=== PATIENT | male | born 1970 | race Two or more races ===

== ENCOUNTER 2019-01-18 14:41 | Inpatient (IN) | payer OTHER ==
[~2019-01-18] VITALS: Ht 172.7 cm; Wt 75.0 kg
[2019-01-18] MEDS ORDERED: SODIUM CHLORIDE 0.9% 1,000 ML IV ONE ×2 (15:11)
[2019-01-18 15:22] LABS: Basophils # (auto) 0 uL; Basophils % (auto) 0.5 % (0.0-2.0); Eosinophils # (auto) 0.1 uL; Hematocrit 36.9 % (41.0-53.0); Hemoglobin 12.2 g/dL (13.5-17.5); Lymphocytes # (auto) 1.6 uL; Lymphocytes % (auto) 17.9 % (10.0-50.0); Mean Corpuscular Hemoglobin 28.7 pg (28.0-32.0); Monocytes # (auto) 0.7 uL; Monocytes % (auto) 8.2 % (0.0-12.0); Neutrophils # (auto) 6.5 uL; Neutrophils % (auto) 72.4 % (37.0-80.0); Platelet Count (auto) 269 10^3/uL (140-450); Red Blood Cells 4.24 10^6/uL (4.5-5.90); Red Cell Distribution Width 13.5 % (11.8-14.3)
[2019-01-18 15:28] LABS: Albumin 3.1 g/dL (3.4-5.0); Calcium 9.3 mg/dL (8.5-10.1)
[2019-01-18 15:34] LABS: BUN/Creatinine Ratio 18.6; Bilirubin, Total 0.2 mg/dL (0.2-1.0); Total Protein 8.5 g/dL (6.4-8.2)
[2019-01-18 15:36] LABS: INR 0.9 (0.9-1.15); Partial Thromboplastin Time 26.6 sec (23.78-33.04); Prothrombin Time 9.7 sec (9.27-12.13)
[2019-01-18] MEDS ORDERED: VANCOMYCIN 1GM/250ML 250 ML IV ONE (22:00)
[2019-01-18] MEDS ORDERED: ONDANSETRON HCL 4 MG/2 ML VIAL IV PRN (22:00)
--- NOTE | 2019-01-18 23:35 | NUR ---
MS admit from ER MONY HIGUERA admitted to tele/MS after SBAR received. Patient oriented to Sherley jerez RN, unit, room, bed, and unit policies regarding patient care and visiting hours. Patient weighed by bedscale and encouraged to call if they need something. All questions and concerns addressed, patient verbalized understanding. Note: 2 PERCUTANEOUS DRAINAGE TO RIGHT UPPER BACK DRAINING BLOODY DRAIN.
[2019-01-19] VITALS: BP 119/65
--- NOTE | 2019-01-19 00:25 | NUR ---
PAGED DR. ESQUEDA, PATIENT REPORTED TO BE DIABETIC WITH NO SLIDING SCALE ORDERS AND IS REQUESTING FOR SLEEPING PILL.
--- NOTE | 2019-01-19 00:38 | NUR ---
DR. ESQUEDA CALLED BACK NEW ORDERS MADE. CONTINUE PATIENT CARE.
[2019-01-19] MEDS: ZOLPIDEM TARTRATE 5 MG TAB PO PRN (01:48)
[2019-01-19 03:33] LABS: Urine Bacteria NONE SEEN /hpf (None Seen); Urine Blood Negative /uL (Negative); Urine Specific Gravity 1.024 (1.001-1.035); Urine WBC <1 /hpf (0 - 3)
[2019-01-19 05:22] VITALS: BP 117/67
--- NOTE | 2019-01-19 08:00 | NUR ---
ASSESSMENT NOTE PT IS LAERT ORIENTED X4, RESTING IN BED COMFORTABLY, NO DISTRESS NOTED, PAIN 0/10, SELF REPOSITION, ABLE TO IDENTIFY HIS DEMANDS, PT HAS A METAL CUFF AT LEFT WRIEST, CHECKED FOR CIRCULATION AT ALL TIMES, CALL LIGHT WITH REACH, PT'S GUARDS AT BED SIDE
[2019-01-19 09:00] VITALS: BP 134/75
[2019-01-19] MEDS ORDERED: InsuLIN REG 1unit/0.01ml Soln (100units/ml) SC SCH ×2 (10:00→22:00)
[2019-01-19] MEDS ORDERED: ACCU-CHEK COMFORT CURVE STRIP VI SCH (10:00)
--- NOTE | 2019-01-19 11:30 | NUR ---
WOUND NURSE BILLY AT BED SIDE ASSESSING PT'S SKIN
--- NOTE | 2019-01-19 11:32 | NUR ---
WOUND CARE NOTE: Wound care in to see patient per wound care request regarding " wound to upper back" that are noted present on admission. Bedside nurse took photograph of patient's skin issue upon admission for reference. Patient is 48 years old male with admitting diagnosis of Abscess. Patient has history of DM. Patient is resting in bed in Rm. 244-6. Patient is awake, Luxembourgish speaking, alert and oriented. Patient is in no stated pain at this time. He reported that he's ambulatory and he's self turn and reposition. His Alexei score is 20. Patient's Rt upper chest/shoulder has intact 5x5cm red lump and to his medial upper back is 2x 0.7x0.7cm intact dry scabbed wounds with dark red luz wound. Rt upper back has 2x intact pig tail drain. No open draining wound noted. RN Lorrie reported that patient had aspiration of fluid/abscess to Rt upper back in ED and pig tail drain was placed. She also reported that during aspiration of fluid/abscess, wound culture specimen already sent to lab. No other wound noted, no pressure injury related issue noted. Patient tolerated well. Bed in low position, call head within reach with all safety precautions in placed. No further wound care monitoring needed at this time. Addendum: 01/19/19 at 1540 by Chante Mc RN Amended: Links added.
--- NOTE | 2019-01-19 12:40 | NUR ---
DR ESQUEDA IS HERE MADE AWARE OF PT'S BLOOD SUGAR
[2019-01-19 12:51] VITALS: BP 124/73
[2019-01-19] MEDS ORDERED: DEXTROSE (50%) 50ML SYRG IV PRN (13:00)
[2019-01-19] MEDS: InsuLIN REG 1unit/0.01ml Soln (100units/ml) SC SCH ×2 (13:16→22:25)
[2019-01-19] MEDS: ACCU-CHEK COMFORT CURVE STRIP VI SCH ×2 (13:16→22:13)
[2019-01-19] MEDS: VANCOMYCIN 1GM/250ML 250 ML IV SCH (14:15)
--- NOTE | 2019-01-19 15:26 | NUR ---
Nutrition Consult/assessment Notes Please see attached link for complete assessment Est. Needs BW [id number] kcal (23-25 kcal/kgBW), 79-95 gms pro (1.0-1.2gms/kgBW r/t wounds). Will continue to monitor pertinent labs and reassess nutrient need prn Addendum: 01/19/19 at [address] Amended: Links added.
[2019-01-19 16:42] VITALS: BP 104/67
--- NOTE | 2019-01-19 17:56 | NUR ---
PT CONTINUE STABLE, NO DISTRESS NOTED, CONTINUE MONITORING.
--- NOTE | 2019-01-19 19:25 | NUR ---
Opening Shift Note Assumed care of patient, awake and alert with guard at bedside. No S/S of distress/SOB or pain. Instructed on POC and to call for assistance PRN, will continue to monitor for changes Q1hr and PRN.
[2019-01-19 21:30] VITALS: BP 104/58
[2019-01-19] MEDS: MORPHINE SULFATE 4 MG/ML SYR/VIAL IV PRN (22:14)
[2019-01-20] MEDS: VANCOMYCIN 1GM/250ML 250 ML IV SCH ×2 (02:10→13:46)
[2019-01-20 05:00] VITALS: BP 98/55
--- NOTE | 2019-01-20 07:09 | NUR ---
MADI drain emptied 25 cc emptied from MADI drains.
--- NOTE | 2019-01-20 08:00 | NUR ---
ASSESSMENT NOTE PT IS ALERT ORIENTED X4, RESTING IN BED COMFORTABLY, NO DISTRESS NOTED, PAIN 0/10, SELF REPOSITION, ABLE TO IDENTIFY HIS DEMANDS, PT HAS A METAL CUFF AT WRIEST WRIEST, CHECKED FOR CIRCULATION AT ALL TIMES, CALL LIGHT WITH REACH, PT'S GUARDS AT BED SIDE. PT CONTINUE TO HAVE 2 MADI DRAINAGE ON RT UPPER POSTERIOR NECK AREA, ON A NEGATIVE PRESSURE.
--- NOTE | 2019-01-20 08:09 | NUR ---
DR HUGHES AT BED SIDE A SURGICAL CONSULT, ASSESSING PT.
--- NOTE | 2019-01-20 08:23 | NUR ---
DR GUZMAN INFORM ME THAT PT IS A LOT BETTER NOW, AND HE NEED BNP BECAUSE HE IS ON VANCOMYCIN AND THIS MAY EFFECT HIS KIDNEY.
[2019-01-20] MEDS: metFORMIN HYDROCHLORIDE 850 MG TAB PO SCH (09:22)
[2019-01-20 09:31] LABS: Basophils # (auto) 0 uL; Basophils % (auto) 0.5 % (0.0-2.0); Eosinophils # (auto) 0.2 uL; Eosinophils % (auto) 2.3 % (0.0-7.0); Hematocrit 36.2 % (41.0-53.0); Hemoglobin 11.8 g/dL (13.5-17.5); Lymphocytes # (auto) 1.9 uL; Lymphocytes % (auto) 22.6 % (10.0-50.0); Mean Corpuscular Hemoglobin 28.6 pg (28.0-32.0); Mean Corpuscular Hgb Conc. 32.6 g/dL (32.0-36.0); Mean Corpuscular Volume 87.6 fL (80.0-100.0); Monocytes # (auto) 0.6 uL; Monocytes % (auto) 7.1 % (0.0-12.0); Neutrophils # (auto) 5.7 uL; Neutrophils % (auto) 67.5 % (37.0-80.0); Platelet Count (auto) 253 10^3/uL (140-450); Red Blood Cells 4.13 10^6/uL (4.5-5.90); Red Cell Distribution Width 13.8 % (11.8-14.3); White Blood Cell 8.4 10^3/uL (4.4-10.8)
[2019-01-20 09:35] VITALS: BP 124/68
[2019-01-20 09:44] LABS: BUN/Creatinine Ratio 22.1; Calcium 8.9 mg/dL (8.5-10.1); Potassium 4.4 mmol/L (3.5-5.1)
[2019-01-20] MEDS: InsuLIN REG 1unit/0.01ml Soln (100units/ml) SC SCH ×2 (11:44→22:15)
[2019-01-20] MEDS: ENOXAPARIN SOD 40 MG/0.4 ML SYRINGE SC SCH (11:44)
[2019-01-20] MEDS: ACCU-CHEK COMFORT CURVE STRIP VI SCH ×2 (11:44→22:09)
[2019-01-20 12:32] VITALS: BP 114/58
--- NOTE | 2019-01-20 14:00 | NUR ---
PT CONTINUE STABLE, CONTINUE MONITORING
[2019-01-20 16:58] VITALS: BP 105/63
--- NOTE | 2019-01-20 17:50 | NUR ---
PT CONTINUE STABLE DRAIN BOTH MADI DRAINAGE WAS 50 ML EACH.
--- NOTE | 2019-01-20 19:10 | NUR ---
Opening Shift Note Assumed care of patient, awake and alert. No S/S of distress/SOB or pain. Instructed on POC and to call for assistance PRN, will continue to monitor for changes Q1hr and PRN.
[2019-01-20 21:00] VITALS: BP 110/65
[2019-01-20] MEDS: MORPHINE SULFATE 4 MG/ML SYR/VIAL IV PRN (22:09)
[2019-01-21] MEDS: VANCOMYCIN 1GM/250ML 250 ML IV SCH ×2 (01:32→14:28)
[2019-01-21 05:00] VITALS: BP 96/44
--- NOTE | 2019-01-21 07:00 | NUR ---
Opening Shift Note Assumed care of patient, awake and alert. No S/S of distress/SOB or pain. Two drainage bags to suction draining dark brown fluid. Instructed on POC and to call for assist PRN, will continue to monitor. Bed locked in the lowest position. Bed rails up x2. Call light in reach. Guards at bedside.
[2019-01-21 09:00] VITALS: BP 120/68
[2019-01-21] MEDS: metFORMIN HYDROCHLORIDE 850 MG TAB PO SCH (09:44)
[2019-01-21] MEDS: ENOXAPARIN SOD 40 MG/0.4 ML SYRINGE SC SCH (09:45)
[2019-01-21] MEDS: MORPHINE SULFATE 4 MG/ML SYR/VIAL IV PRN (09:47)
[2019-01-21] MEDS: ACCU-CHEK COMFORT CURVE STRIP VI SCH ×2 (09:47→22:15)
[2019-01-21] MEDS: InsuLIN REG 1unit/0.01ml Soln (100units/ml) SC SCH ×2 (09:48→22:15)
[2019-01-21] MEDS ORDERED: HYDROcodone-ACET 10/325MG TAB PO PRN (11:00)
[2019-01-21 13:00] VITALS: BP 102/53
--- NOTE | 2019-01-21 15:00 | NUR ---
RECEIVED CALL FROM MICROBIOLOGY PATIENT IS POSITIVE FOR MRSA IN WOUND. PAGED MD. AWAITING CALL BACK
--- NOTE | 2019-01-21 15:24 | NUR ---
AWARE DR. ESQUEDA AWARE OF PATIENTS POSITIVE MRSA RESULT. NO NEW ORDERS RECEIVED.
--- NOTE | 2019-01-21 15:25 | NUR ---
PATIENT MOVED TO ROOM 240 BED B IN BED WITH ALL PERSONAL BELONGINGS. NO S/S OF DISTRESS NOTED AT THIS TIME. DRAINS TO SUCTION. PATIENT DENIES PAIN.
[2019-01-21 17:00] VITALS: BP 110/59
--- NOTE | 2019-01-21 18:58 | NUR ---
CLOSING NOTE Patient is awake and alert. No S/S of distress/SOB or pain. Two drainage bags to suction draining dark brown fluid. Bed locked in the lowest position. Bed rails up x2. Call light in reach. Guards at bedside. Addendum: 01/21/19 at 1859 by Dilma Borges RN Endorsed care to registered nurse midwife RN.
--- NOTE | 2019-01-21 19:00 | NUR ---
DRAINAGE OUTPUT DRAIN #1 25ML OF DARK BROWN DRAINAGE DRAIN #2 20ML OF DARK BROWN DRAINAGE DRAINS TO SUCTION.
--- NOTE | 2019-01-21 19:35 | NUR ---
Opening Shift Note Assumed care of patient, awake and alert. No S/S of distress/SOB or pain. Guards at bedside. Bed locked in lowest position, side rails upx2, call light within reach. Instructed on POC and to call for assist PRN, will continue to monitor for changes Q1hr and PRN.
--- NOTE | 2019-01-21 20:49 | NUR ---
IV insertion IV access obtained, via clean sterile technique by inserting 22 gauge catheter at RIGHT ANTECUBITAL after 1 attempt(s). IV secured properly. No trauma to site. Patient tolerated well.
[2019-01-21 22:00] VITALS: BP 123/67
[2019-01-22] MEDS: VANCOMYCIN 1GM/250ML 250 ML IV SCH ×2 (02:04→17:07)
[2019-01-22 05:00] VITALS: BP 120/60
--- NOTE | 2019-01-22 06:06 | NUR ---
DRAINS Removed total of 25cc of dark brown fluid from both pigtail drains.
--- NOTE | 2019-01-22 08:26 | NUR ---
OPEN PT RESTING IN BED AWAKE A&O WITH EQUAL AND UNLABORED PT IN CUSTODY AND CUFFED TO BED, GUARDS X2 AT BEDSIDE PT HAS DRAIN X2 TO RIGHT POSTERIOR SHOULDER AND UNOPENED, HYPER PIGMENTED, HEALING OLD ABSCESS AREA TO RIGHT UPPER CHEST/ANTERIOR SHOULDER NO CURRENT C/O PAIN, NO S/S OF DISTRESS WILL CONTINUE TO MONITOR
[2019-01-22 09:00] VITALS: BP 130/70
[2019-01-22] MEDS: ACCU-CHEK COMFORT CURVE STRIP VI SCH ×2 (10:00→21:43)
[2019-01-22] MEDS: InsuLIN REG 1unit/0.01ml Soln (100units/ml) SC SCH ×2 (10:00→21:43)
[2019-01-22] MEDS: ENOXAPARIN SOD 40 MG/0.4 ML SYRINGE SC SCH (11:06)
[2019-01-22] MEDS: metFORMIN HYDROCHLORIDE 850 MG TAB PO SCH (11:08)
[2019-01-22 13:00] VITALS: BP 120/68
[2019-01-22 17:00] VITALS: BP 120/70
[2019-01-22 21:30] VITALS: BP 118/66
[2019-01-22] MEDS: ZOLPIDEM TARTRATE 5 MG TAB PO PRN (21:42)
[2019-01-23] MEDS: VANCOMYCIN 1GM/250ML 250 ML IV SCH ×2 (02:02→14:14)
[2019-01-23 04:30] VITALS: BP 105/58
--- NOTE | 2019-01-23 08:30 | NUR ---
OPEN PT RESTING IN BED AWAKE A&O GREENLAND[place] SPEAKING GUARDS AT BEDSIDE X2 NO C/O PAIN OR S/S OF DISTRESS WILL CONTINUE TO MONITOR
[2019-01-23 09:00] VITALS: BP 110/69
[2019-01-23] MEDS ORDERED: VANCOMYCIN PER PHARMACY 1,000 MG IV SCH (09:30)
[2019-01-23] MEDS: InsuLIN REG 1unit/0.01ml Soln (100units/ml) SC SCH ×2 (10:00→22:41)
[2019-01-23] MEDS: ACCU-CHEK COMFORT CURVE STRIP VI SCH ×2 (10:00→22:41)
[2019-01-23] MEDS: metFORMIN HYDROCHLORIDE 850 MG TAB PO SCH (10:35)
[2019-01-23] MEDS: ENOXAPARIN SOD 40 MG/0.4 ML SYRINGE SC SCH (10:36)
[2019-01-23 13:00] VITALS: BP 110/68
[2019-01-23 17:31] VITALS: BP 115/69
--- NOTE | 2019-01-23 19:30 | NUR ---
Opening Shift Note Assumed care of patient, awake and alert. No S/S of distress/SOB or pain. Pt speaks Turkmen, but iron guardrail installer able to interpret. Insructed on POC and to call for assist PRN, will continue to monitor for changes PRN. Bed in low position and semi-Engle's. Call light in pt's bed across his lap.
--- NOTE | 2019-01-23 19:58 | NUR ---
provided report to shift leader nurse. patient is aox4, verbally denies any pain, distress or pain at this time.
[2019-01-23 21:57] VITALS: BP 120/70
[2019-01-23] MEDS: ZOLPIDEM TARTRATE 5 MG TAB PO PRN (22:45)
[2019-01-24] MEDS: VANCOMYCIN 1GM/250ML 250 ML IV SCH ×2 (02:00→14:22)
[2019-01-24 04:32] VITALS: BP 124/79
[2019-01-24 08:50] VITALS: BP 123/75
[2019-01-24] MEDS: metFORMIN HYDROCHLORIDE 850 MG TAB PO SCH (08:54)
[2019-01-24] MEDS: ENOXAPARIN SOD 40 MG/0.4 ML SYRINGE SC SCH (08:54)
--- NOTE | 2019-01-24 10:00 | NUR ---
DR ESQUEDA IS HERE FOLLOWING UP ON PT
[2019-01-24] MEDS: ACCU-CHEK COMFORT CURVE STRIP VI SCH ×2 (10:24→21:47)
[2019-01-24] MEDS: InsuLIN REG 1unit/0.01ml Soln (100units/ml) SC SCH ×2 (10:24→21:47)
--- NOTE | 2019-01-24 11:55 | NUR ---
PT CONTINUE STABLE, TOLERATING DIET WELL.
--- NOTE | 2019-01-24 12:07 | NUR ---
Nutrition Follow-up Notes Wt.: 78.3 kg as of yesterday. Pt's an inmate, deputies at bedside, denies any discomfort when rounded this morning. 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 Pt's diabetic, takes oral DM meds, with insulin shots 2x daily, usually has good appetite, eat meals regularly, NKFA and not into any special diets mine captain. Pt's currently on Consistent Std. Carb: 60 gms/meal diet with adequate PO intake aeb 95% ave. consumed meals (x7) in last 3 days. Provide nutrition educ. re: current prescribed therapeutic diet and he verbalized understanding. Noted pt's for active Wound consult. Est. Needs BW [id number] kcal (23-25 kcal/kgBW), 79-95 gms pro (1.0-1.2gms/kgBW r/t wounds). Will continue to monitor pertinent labs and reassess nutrient need prn Labs: No new labs since 01/20/19 except for today POC Gluc 247 H; Alb 3.1 L. Skin: Alexei scale 19, low risk, pt's right upper anterior chest/shoulder, right back incision s/p I & D with drains per business support coordinator. GI: Pt had 1 BM this morning per business support coordinator. PES: Altered nutrition related lab values r/t current/chronic medical condition aeb hyperglycemia, mild hypoalb Will continue to monitor PO intake, skin status, pertinent labs and weight trend. F/u in 3 to 5 days. Rec.: 1.) Continue close supervision during meals. 2.) Refer pt to CDE/RD for further nutrition education and weight monitoring upon discharge. 3.) Continue current plan of care.
--- NOTE | 2019-01-24 12:58 | NUR ---
Opening Shift Note Assumed care of patient, awake and alert. No S/S of distress/SOB or pain. Instructed on POC and to call for assist PRN, will continue to monitor for changes Q1hr and PRN. GUARD AT BEDSIDE
[2019-01-24 17:59] VITALS: BP 130/70
--- NOTE | 2019-01-24 19:00 | NUR ---
DRAINAGE FROM NECK DRAINS FIRST BAG HAD 5ML AND SECOND BAG HAD 12 ML
--- NOTE | 2019-01-24 19:45 | NUR ---
Opening Shift Note Assumed care of patient, awake and alert, Tajik speaking hospital administrative assistant at bedside, A/O X4. On room air with even and unlabored respirations. DrainsX2 to right upper posterior shoulder/back clean, dry, intact with minimum purulent drainage. Pt turns independently in bed. Guards at bedside. No S/S of distress/SOB or pain. Instructed on POC and to call for assist PRN, will continue to monitor for changes Q1hr and PRN.
[2019-01-24 20:00] VITALS: BP 118/76
[2019-01-24 22:00] VITALS: BP 118/76
[2019-01-25] MEDS: VANCOMYCIN 1GM/250ML 250 ML IV SCH ×2 (02:04→13:54)
[2019-01-25 05:05] VITALS: BP 121/66
--- NOTE | 2019-01-25 07:00 | NUR ---
Closing Note patient resting in bed with even and unlabored respirations. no s/s distress. Endorsed care at bedside.
--- NOTE | 2019-01-25 08:00 | NUR ---
IV removal IV to right antecubital DC'd with clean sterile technique, catheter fully intact. Pressure dressing applied to site. Patient tolerated well.
--- NOTE | 2019-01-25 08:00 | NUR ---
SPOKE WITH MD ESQUEDA- UPDATED ON MICROBIOLOGY RESULTS, ORDERS TO CONTINUE BACTROBAN IN NARES AT THIS TIME. WILL FOLLOW THROUGH WITH ORDERS.
[2019-01-25 09:13] VITALS: BP 113/67
[2019-01-25] MEDS: InsuLIN REG 1unit/0.01ml Soln (100units/ml) SC SCH ×2 (10:30→23:19)
[2019-01-25] MEDS: metFORMIN HYDROCHLORIDE 850 MG TAB PO SCH (10:30)
[2019-01-25] MEDS: ENOXAPARIN SOD 40 MG/0.4 ML SYRINGE SC SCH (10:30)
[2019-01-25] MEDS: ACCU-CHEK COMFORT CURVE STRIP VI SCH ×2 (10:31→23:20)
--- NOTE | 2019-01-25 10:45 | NUR ---
IV insertion IV access obtained, via clean sterile technique by inserting 22 gauge catheter at after 1 attempt. IV secured properly. No trauma to site. Patient tolerated well.
[2019-01-25 13:40] VITALS: BP 117/69
--- NOTE | 2019-01-25 13:50 | NUR ---
MD GUZMAN AT BEDSIDE. ONE DRAIN REMOVED FROM BACK. PATIENT TOLERATED WELL, NO S/S OF STRESS.
[2019-01-25 17:59] VITALS: BP 117/68
--- NOTE | 2019-01-25 19:43 | NUR ---
CLOSING NOTE SHIFT REPORT GIVEN TO BALANCE CLERK RN. PATIENT IN BED LOW LOCK POSITION. CALL LIGHT IN REACH. NO S/S OF DISTRESS.
[2019-01-25 20:00] VITALS: BP 118/76
[2019-01-25 21:59] VITALS: BP 119/69
[2019-01-26] MEDS: VANCOMYCIN 1GM/250ML 250 ML IV SCH ×2 (02:23→14:15)
[2019-01-26 04:52] VITALS: BP 109/57
--- NOTE | 2019-01-26 07:30 | NUR ---
OPENING NOTE The patient is received alert and oriented times four with no SOB or s/s of distress at this time. The patient is resting in bed in the lowest position with correctional officers bedside, will continue to monitor and POC.
[2019-01-26 08:42] VITALS: BP 122/72
[2019-01-26] MEDS: metFORMIN HYDROCHLORIDE 850 MG TAB PO SCH (09:38)
[2019-01-26] MEDS: InsuLIN REG 1unit/0.01ml Soln (100units/ml) SC SCH ×2 (09:39→22:25)
[2019-01-26] MEDS: ENOXAPARIN SOD 40 MG/0.4 ML SYRINGE SC SCH (09:39)
[2019-01-26] MEDS: ACCU-CHEK COMFORT CURVE STRIP VI SCH ×2 (09:40→22:25)
--- NOTE | 2019-01-26 12:30 | NUR ---
Rounds Patient awake and alert. No S/S of distress/SOB or pain. Will continue to monitor changes q1hr and PRN.
[2019-01-26 12:32] VITALS: BP 100/57
--- NOTE | 2019-01-26 16:30 | NUR ---
Rounds Patient awake and alert. No S/S of distress/SOB or pain. Will continue to monitor changes q1hr and PRN.
[2019-01-26 16:36] VITALS: BP 136/70
--- NOTE | 2019-01-26 19:30 | NUR ---
Patient in bed alert and oriented x 4, verbally coherent, able to make needs known. Patient's respiration even and unlabored, denies pain and discomfort at this time. Plan of care discussed, patient verbalized understanding. All needs attended, 2 guards at bedside, will continue to monitor.
[2019-01-26 20:00] VITALS: BP 118/76
--- NOTE | 2019-01-26 21:35 | NUR ---
Patient wanted to shower. Provided pt with toiletries and IV to RFA wrapped for safety. Guards assisted patient to bathroom.
[2019-01-26 22:00] VITALS: BP 111/65
[2019-01-27] MEDS: VANCOMYCIN 1GM/250ML 250 ML IV SCH ×3 (02:39→14:19)
[2019-01-27 05:00] VITALS: BP 107/64
[2019-01-27 06:31] LABS: Albumin 2.5 g/dL (3.4-5.0); BUN/Creatinine Ratio 23.1; Calcium 8.5 mg/dL (8.5-10.1); Potassium 4.2 mmol/L (3.5-5.1)
--- NOTE | 2019-01-27 06:31 | NUR ---
Drained 15 mls of purulent fluid. Dressing intact clean and dry. No tenderness or redness to surrounding skin. Will continue to monitor.
[2019-01-27 06:33] LABS: Bilirubin, Total 0.1 mg/dL (0.2-1.0); Total Protein 7.3 g/dL (6.4-8.2)
[2019-01-27 08:00] VITALS: BP 122/71
[2019-01-27 08:46] VITALS: BP 117/62
[2019-01-27] MEDS: ACCU-CHEK COMFORT CURVE STRIP VI SCH ×2 (10:00→21:45)
[2019-01-27] MEDS: InsuLIN REG 1unit/0.01ml Soln (100units/ml) SC SCH ×2 (10:00→21:44)
[2019-01-27] MEDS: ENOXAPARIN SOD 40 MG/0.4 ML SYRINGE SC SCH (11:04)
[2019-01-27] MEDS: metFORMIN HYDROCHLORIDE 850 MG TAB PO SCH (11:04)
[2019-01-27 13:00] VITALS: BP 122/71
[2019-01-27 16:29] VITALS: BP 131/72
--- NOTE | 2019-01-27 19:30 | NUR ---
Opening Shift Note Assumed care of patient, awake and alert. No S/S of distress/SOB or pain. Instructed on POC and to call for assist PRN, will continue to monitor for changes Q1hr and PRN. Guards at bedside.
[2019-01-27] MEDS: ZOLPIDEM TARTRATE 5 MG TAB PO PRN (21:42)
[2019-01-27 22:00] VITALS: BP 131/79
[2019-01-28] MEDS: VANCOMYCIN 1GM/250ML 250 ML IV SCH ×2 (02:40→14:00)
[2019-01-28 05:00] VITALS: BP 102/57
[2019-01-28 08:44] VITALS: BP 109/67
[2019-01-28] MEDS: metFORMIN HYDROCHLORIDE 850 MG TAB PO SCH (10:25)
[2019-01-28] MEDS: ENOXAPARIN SOD 40 MG/0.4 ML SYRINGE SC SCH (10:25)
[2019-01-28] MEDS: ACCU-CHEK COMFORT CURVE STRIP VI SCH (10:26)
[2019-01-28] MEDS: InsuLIN REG 1unit/0.01ml Soln (100units/ml) SC SCH (10:26)
[2019-01-28] MEDS ORDERED: SULF400T11 PO (12:41)
[2019-01-28 13:00] VITALS: BP 121/80
--- NOTE | 2019-01-28 15:35 | NUR ---
Discharge instructions given as ordered. Encourage to follow up with PMD as instructed. All questions and concerns addressed. Patient verbalized understanding. Medication reconciliation form completed and copy given to patient. IV removed with catheter intact and pressure dressing applied. Patient ambulated to vehicle, guards in attendance with all personal belongings.
== END 2019-01-28 15:33 | DRG 602 ==
LOC: ER 14:45 → EEVIPCON 14:45 → OVERFLOW 22:23 → TELE-E-ADS 23:31 → TELE-EAST 01-21 15:44 → EAST 01-23 16:04
PROVIDERS: ADMIT Internal Medicine; ATTEND Internal Medicine
PROC: 0W963ZZ Drainage of Neck, Percutaneous Approach (ICD-10-PCS; principal; 2019-01-18)
DX: L03.313 Cellulitis of chest wall (principal); J86.9 Pyothorax without fistula; E44.1 Mild protein-calorie malnutrition; E11.9 Type 2 diabetes mellitus without complications; L29.9 Pruritus, unspecified; L03.312 Cellulitis of back [any part except buttock and flank]; B95.62 Methicillin resistant Staphylococcus aureus infection as the cause of diseases classified elsewhere; Z83.3 Family history of diabetes mellitus; Z68.25 Body mass index [BMI] 25.0-25.9, adult
CPT/HCPCS: 10022; 36415; 71260; 76942; 80048; 80053; 80202; 81001; 82962; 83605; 83880; 85025; 85610; 85730; 87040; 87077; 87081; 87186; 87205; A4223; A6257; C1729; C2625; G0378; J1815